=== PATIENT | female | born 1965 | race Caucasian/White ===

== ENCOUNTER 2018-01-25 18:07 | Inpatient (IN) ==
[2018-01-25] MEDS ORDERED: SODIUM CHLORIDE 0.9% 1,000 ML IV STA (18:43)
[2018-01-25 18:58] LABS: Basophils % 0.2 % (0.0-0.8); Hematocrit 34.4 VOL% (35.7-47.0); Hemoglobin 11.7 GM/DL (12.0-16.0); Immature Granulocytes % 0.6 %; Immature Granulocytes Absolute 0.03 #; Lymphocytes # 0.9 10*3/uL (1.4-4.0); Lymphocytes % 16.9 % (21.3-54.2); Mean Corpuscular Hemoglobin 29 PG (27-34); Mean Corpuscular Volume 83.9 FL (87-102); Mean Platelet Volume 10.7 FL (9.6-12.0); Monocytes # 0.4 10*3/uL (0.11-0.8); Monocytes % 7.6 % (1.7-12.7); Neutrophils # 3.9 10*3/uL (1.4-7.4); Neutrophils % 74.7 % (38.7-73.9); Platelet Count 187 T/CUMM (130-400); Red Cell Distribution Width 16.2 % (9.3-17.3); White Blood Count 5.2 T/CUMM (4-12)
[2018-01-25 19:17] LABS: Albumin 2.6 G/DL (3.4-5.0); Bilirubin,Total 0.7 MG/DL (0.2-1.0); Calcium 7.5 MG/DL (8.5-10.1); Osmolality,Calculated 265.5 MOS/KG (273-304); Potassium 2.9 MMOL/L (3.5-5.1); Total Protein 5.2 G/DL (6.4-8.3)
[2018-01-25 19:22] LABS: Lactic Acid 1.5 MMOL/L (0.4-2.0)
[2018-01-25] MEDS ORDERED: cefTRIAXone 1,000 MG in SODIUM CHLORIDE 0.9% 100 ML IV STA (20:43)
[2018-01-25] MEDS ORDERED: AZITHROMYCIN 250 MG TABLET PO STA (20:43)
[2018-01-25] MEDS ORDERED: SODIUM CHLORIDE 0.9% 100 ML IV ONE (20:53)
[2018-01-25] MEDS ORDERED: AZITHROMYCIN 250 MG TABLET ONE (20:53)
[2018-01-25] MEDS ORDERED: cefTRIAXone 1,000 MG VIAL ONE (20:53)
[2018-01-25] MEDS ORDERED: ONDANSETRON 4 MG/2 ML VIAL IV PRN (21:53)
[2018-01-25] MEDS ORDERED: ACETAMINOPHEN 325 MG TABLET PO PRN (21:53)
[2018-01-25] MEDS ORDERED: CLOZAPINE PO SCH (22:15)
[2018-01-25] MEDS ORDERED: POTASSIUM CHLORIDE 20 MEQ TABLET PO ONE (22:30)
[2018-01-25] MEDS ORDERED: ALBUTEROL 2.5 MG/3 ML NEB RESP TX PRN (22:44)
[2018-01-25] MEDS: SODIUM CHLORIDE 0.9% 1,000 ML IV SCH (23:15)
[2018-01-25] MEDS: LEVOFLOXACIN INJ 750 MG in PREMIX 1 EACH IV SCH (23:18)
[2018-01-25] MEDS: ATORVASTATIN 20 MG TABLET PO SCH (23:25)
[2018-01-25] MEDS: PERPHENAZINE 2 MG TABLET PO SCH (23:25)
[2018-01-26] MEDS: ALBUTEROL/IPRATROPIUM 3 ML NEB RESP TX SCH ×4 (01:35→19:45)
[2018-01-26 01:56] LABS: Apearance,Urine CLEAR (Clear); Bacteria,Urine Occasional /HPF (Few); Bilirubin,Urine Negative (Negative); Blood, Urine Negative (Negative); Glucose,Urine (UA) Negative (Negative); Ketones,Urine Negative (Negative); Nitrite,Urine Negative (Negative); Protein,Urine Negative; Squamous Epithelial Cell,Urine Occasional /HPF (0-10); Urine Color Yellow (Yellow); Urine Specific Gravity 1.005 (1.001-1.035); Urine Urobilinogen < 2.0 EU/DL (0.2-1.0); WBC,Urine 2 /HPF (0-6)
[2018-01-26 04:38] LABS: Hemoglobin 9.9 GM/DL (12.0-16.0); Immature Granulocytes % 0.6 %; Immature Granulocytes Absolute 0.02 #; Lymphocytes % 27.4 % (21.3-54.2); Mean Corpuscular HGB Conc 35.4 GM/DL (32-36); Mean Corpuscular Hemoglobin 29 PG (27-34); Mean Corpuscular Volume 81.9 FL (87-102); Mean Platelet Volume 10.7 FL (9.6-12.0); Monocytes # 0.3 10*3/uL (0.11-0.8); Monocytes % 7.2 % (1.7-12.7); Neutrophils # 2.3 10*3/uL (1.4-7.4); Neutrophils % 64.8 % (38.7-73.9); Platelet Count 133 T/CUMM (130-400); Red Blood Count 3.42 MC/CUMM (3.8-5.5); Red Cell Distribution Width 16.1 % (9.3-17.3); White Blood Count 3.5 T/CUMM (4-12)
[2018-01-26 05:25] LABS: Calcium 6.9 MG/DL (8.5-10.1); Potassium 2.7 MMOL/L (3.5-5.1); Thyroid Stimulating Hormone 2.75 uIU/ml (0.358-3.74)
[2018-01-26 05:28] LABS: Band Neutrophils 6 % (0-10); Lymphocytes 21 % (20-55); Segmented Neutrophils 68 % (50-85); Total Cells Counted 100
[2018-01-26 05:29] LABS: Hypochromasia 1+; Microcytosis 1+
[2018-01-26 05:30] LABS: Ovalocytes Slight
[2018-01-26 05:33] LABS: Atypical Lymphocytes Few; Platelet Estimate Adequate
[2018-01-26] MEDS: LEVOTHYROXINE 25 MCG TABLET PO SCH (06:23)
[2018-01-26] MEDS: SODIUM CHLORIDE 0.9% 1,000 ML IV SCH ×3 (06:43→18:00)
[2018-01-26] MEDS ORDERED: CLOZAPINE 200 MG PO SCH (09:00)
[2018-01-26] MEDS ORDERED: POTASSIUM CHLORIDE 20 MEQ TABLET PO SCH ×2 (09:00→14:30)
[2018-01-26] MEDS: POTASSIUM CHLORIDE 20 MEQ/15 ML UDCUP PO SCH ×4 (09:28→22:35)
[2018-01-26] MEDS: PANTOPRAZOLE 40 MG TABLET PO SCH (09:28)
[2018-01-26] MEDS: CALCIUM (CARBONATE)/VITAMIN D 500 MG-200 UNIT TABLET PO SCH (09:28)
[2018-01-26] MEDS: ENOXAPARIN 40 MG/0.4 ML SYRINGE SUBCUT SCH (09:28)
[2018-01-26] MEDS ORDERED: BISMUTH SUBSALICYLATE 30 ML/524 MG 240 ML/BOTTLE PO PRN (18:52)
[2018-01-26] MEDS: PERPHENAZINE 2 MG TABLET PO SCH (20:39)
[2018-01-26] MEDS: ATORVASTATIN 20 MG TABLET PO SCH (20:39)
[2018-01-27] MEDS: LEVOFLOXACIN INJ 750 MG in PREMIX 1 EACH IV SCH (00:06)
[2018-01-27] MEDS: ALBUTEROL/IPRATROPIUM 3 ML NEB RESP TX SCH ×2 (00:53→07:28)
[2018-01-27] MEDS: LEVOTHYROXINE 25 MCG TABLET PO SCH (05:02)
[2018-01-27 06:11] LABS: Basophils % 0.3 % (0.0-0.8); Hematocrit 28.3 VOL% (35.7-47.0); Hemoglobin 9.3 GM/DL (12.0-16.0); Immature Granulocytes % 0.8 %; Immature Granulocytes Absolute 0.03 #; Lymphocytes # 0.9 10*3/uL (1.4-4.0); Lymphocytes % 24.8 % (21.3-54.2); Mean Corpuscular HGB Conc 32.9 GM/DL (32-36); Mean Corpuscular Hemoglobin 29 PG (27-34); Mean Corpuscular Volume 87.6 FL (87-102); Mean Platelet Volume 10.6 FL (9.6-12.0); Monocytes # 0.3 10*3/uL (0.11-0.8); Monocytes % 7.2 % (1.7-12.7); Neutrophils # 2.4 10*3/uL (1.4-7.4); Neutrophils % 66.9 % (38.7-73.9); Platelet Count 110 T/CUMM (130-400); Red Blood Count 3.23 MC/CUMM (3.8-5.5); White Blood Count 3.6 T/CUMM (4-12)
[2018-01-27 06:28] LABS: Calcium 7.1 MG/DL (8.5-10.1); Osmolality,Calculated 274.4 MOS/KG (273-304); Potassium 3.8 MMOL/L (3.5-5.1)
[2018-01-27 06:31] LABS: Giant Platelets Few; Hypochromasia 1+; Ovalocytes Slight; Platelet Estimate Decreased
[2018-01-27 06:32] LABS: Microcytosis 1+
[2018-01-27] MEDS: POTASSIUM CHLORIDE 20 MEQ/15 ML UDCUP PO SCH (08:51)
[2018-01-27] MEDS: PANTOPRAZOLE 40 MG TABLET PO SCH (08:51)
[2018-01-27] MEDS: CALCIUM (CARBONATE)/VITAMIN D 500 MG-200 UNIT TABLET PO SCH (08:51)
[2018-01-27] MEDS: ENOXAPARIN 40 MG/0.4 ML SYRINGE SUBCUT SCH (08:52)
[2018-01-27] MEDS: SODIUM CHLORIDE 0.9% 1,000 ML IV SCH (10:05)
[2018-01-27 12:23] VITALS: BP 96/78
== END 2018-01-27 13:46 | disposition home or self-care (01) | DRG 194 ==
LOC: N.ED 18:07 → N.EDINP 21:34 → SUATTDRO 21:34 → N.ICU 22:56 → N.2E 01-26 17:56
PROVIDERS: ADMIT Internal Medicine; ATTEND Internal Medicine Geriatric Medicine